=== PATIENT | male | born 1990 | race Caucasian/White ===

== ENCOUNTER 2020-01-14 06:46 | Emergency (ER) | payer MEDICAID ==
[~2020-01-14] VITALS: Ht 175.3 cm; Wt 87.1 kg
--- NOTE | 2020-01-14 06:54 | NUR ---
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 PT DENIES DYSURIA, HEMATURIA, FLANK PAIN, FEVER. PT AAOX4. RESPIRATIONS EVEN AND UNLABORED. SKIN WARM AND INTACT. VITAL SIGNS STABLE. AMBULATORY WITH STEADY GAIT. NO ACUTE DISTRESS NOTED AT THIS TIME. WILL CONTINUE TO MONITOR
--- NOTE | 2020-01-14 07:00 | NUR ---
DR. ROTHMAN AT BEDSIDE FOR EVALUATION
--- NOTE | 2020-01-14 07:00 | NUR ---
URINE COLLECTED AND SENT TO LAB
[2020-01-14] MEDS ORDERED: KETOROLAC TROMETHAMINE INJ 30 MG/ML VIAL ONE (07:04)
[2020-01-14] MEDS ORDERED: ONDANSETRON HCL/PF 4 MG/2 ML VIAL ONE (07:04)
--- NOTE | 2020-01-14 07:10 | NUR ---
IV INITIATED LAC 18G. LABS DRAWN FROM SITE. PERIOPERATIVE NURSE AT BEDSIDE FOR COLLECTION. IV INTACT AND PATENT, PLACED ON SALINE LOCK
[2020-01-14] MEDS: IV NS 0.9% 1,000 ML BAG IV ONE ×2 (07:12→08:31)
[2020-01-14] MEDS: KETOROLAC TROMETHAMINE INJ 30 MG/ML VIAL IV ONE (07:15)
[2020-01-14] MEDS: ONDANSETRON HCL/PF 4 MG/2 ML VIAL IVP ONE (07:19)
[2020-01-14 07:24] LABS: BASOPHILS # (AUTO) 0.1 /CMM (0.0-0.2); BASOPHILS % (AUTO) 0.6 % (0.0-2.0); EOSINOPHILS % (AUTO) 1.3 % (0.0-6.0); HEMATOCRIT 47 % (39-51); HEMOGLOBIN 15.8 g/dL (13.5-17.5); LYMPHOCYTES % (AUTO) 13.1 % (20.0-44.0); MEAN CORPUSCULAR HGB CONC 34 g/dl (31.0-36.0); MEAN CORPUSCULAR VOLUME 93 fL (80-96); MONOCYTES # (AUTO) 1.1 /CMM (0.1-1.30); MONOCYTES % (AUTO) 7.1 % (2.0-12.0); NEUTROPHILS # (AUTO) 11.6 /CMM (1.8-8.9); NEUTROPHILS % (AUTO) 77.9 % (43.0-81.0); PLATELET COUNT (AUTO) 122 /CMM (150-450); RED BLOOD CELL COUNT(AUTO) 5.03 MIL/uL (4.5-6.0); WHITE BLOOD COUNT (AUTO) 14.9 K/uL (4.3-11.0)
[2020-01-14 07:28] LABS: APPEARANCE,URINE Clear (CLEAR); BILIRUBIN,URINE Negative (NEGATIVE); BLOOD, URINE Negative Ery/uL (NEGATIVE); COLOR,URINE Yellow (YELLOW); KETONES,URINE 15 (NEGATIVE); LEUKOCYTE ESTERASE ,URINE Negative (NEGATIVE); NITRITE, URINE Negative (NEGATIVE); PROTEIN,URINE Negative (NEGATIVE); UGLUCOSE Negative (NEGATIVE)
[2020-01-14 07:31] LABS: BACTERIA,URINE None seen /HPF (None Seen); RBC,URINE 0-2 /HPF (0-2); SQUAMOUS EPITHELIAL CELL,UR Rare /HPF (None Seen); WBC,URINE 0-2 /HPF (0-3)
[2020-01-14 07:34] LABS: CREATININE 0.8 mg/dL (0.6-1.3); POTASSIUM 3.6 mmol/L (3.5-5.1)
[2020-01-14 07:40] LABS: BILIRUBIN,DIRECT 0.2 mg/dL (0.0-0.2); BILIRUBIN,TOTAL 1.7 mg/dL (0.2-1.0); TOTAL PROTEIN, SERUM 6.8 g/dL (6.4-8.2)
--- NOTE | 2020-01-14 07:53 | NUR ---
REPORT GIVEN TO PRIYANK AKINS FOR GARY
--- NOTE | 2020-01-14 08:40 | NUR ---
PATIENT AMBULATORY WITH STEADY GAIT. DENIES PAIN AND DISCOMFORT. IV removed. Catheter intact and site benign. Pressure and 4x4 applied to site. No bleeding noted. Patient discharged to home in stable condition. Written and verbal after care instructions given. Patient verbalizes understanding of instruction.
[2020-01-14 08:45] VITALS: BP 125/66
== END 2020-01-14 08:46 | disposition home or self-care (01) ==
LOC: ER 06:49
DX: N45.1 Epididymitis (principal); E86.0 Dehydration
CPT/HCPCS: 36415; 74176; 76870; 80048; 80076; 81001; 85025; 96361; 96374; 96375; 99285; J1885; J2405; J7030 ×2; 81000-TC